=== PATIENT | female | born 1960 | race American Indian/Alaskan Native ===

== ENCOUNTER 2017-04-03 07:07 | Emergency (ER) | payer SELFPAY ==
[2017-04-03 08:17] LABS: Basophils % (Auto) 0.6 % (0.0-1.8); Eosinophils % (Auto) 0.6 % (0.0-4.3); Hematocrit 42.6 % (30.3-42.9); Hemoglobin 13.4 gm/dl (10.1-14.3); Mean Corpuscular HGB Conc 31 % (30-34); Mean Corpuscular Volume 79 fl (79-97); Platelet Count 225 K/mm3 (140-440); Red Blood Count 5.43 M/mm3 (3.65-5.03); Red Cell Distribution Width 16.4 % (13.2-15.2)
[2017-04-03 08:22] LABS: Albumin 4.1 g/dL (3.9-5); Bilirubin,Total 0.3 mg/dL (0.1-1.2); Calcium 10.5 mg/dL (8.4-10.2); Chloride 102.8 mmol/L (98-107); Potassium 3.7 mmol/L (3.6-5.0); Total Protein 8.1 g/dL (6.3-8.2)
[2017-04-03 08:26] LABS: Mean Corpuscular Hemoglobin 25 pg (28-32)
[2017-04-03 09:32] LABS: Bacteria,Urine 1+ /HPF (Negative); Bilirubin,Urine SM (Negative); Blood,Urine NEG (Negative); Ketones,Urine TR mg/dL (Negative); Leukocyte Esterase,Urine NEG (Negative); Nitrite,Urine NEG (Negative)
--- NOTE | 2017-04-03 14:16 | Emergency Department Report ---
ED General Adult HPI - General Chief complaint: Abdominal Pain Stated complaint: NAUSEA/VOMITING Time Seen by Provider: 04/03/17 13:44 Source: patient Mode of arrival: Stretcher Limitations: No Limitations - History of Present Illness Initial comments: Patient states that she had lower abdominal pain at about 11:00 this morning. She had a bowel movement which was diarrhea. She noted some blood in the commode and that caused her to call EMS. At the time of my encounter now about 2:15 in the afternoon the patient is asymptomatic. She states he's had no further abdominal pain, diarrhea or any hematochezia. She states that she had a colonoscopy 2-3 years ago and was told that nothing abnormal was found. She is just moved to this area and does not have a physician. She denies any fever or chills. She denies nausea and vomiting. He states he has no history of diabetes. -: Gradual Location: abdomen Radiation: non-radiation Quality: aching Consistency: now resolved Improves with: none Worsens with: none Associated Symptoms: other (hematochezia) Treatments Prior to Arrival: none - Related Data Allergies Allergy/AdvReac Type Severity Reaction Status Date / Time verapamil Allergy Swelling Verified 04/03/17 07:23 ED Review of Systems ROS: Stated complaint: NAUSEA/VOMITING Other details as noted in HPI Constitutional: denies: chills, fever Eyes: denies: eye pain, eye discharge, vision change ENT: denies: ear pain, throat pain Respiratory: denies: cough, shortness of breath, wheezing Cardiovascular: denies: chest pain, palpitations Endocrine: no symptoms reported Gastrointestinal: abdominal pain. denies: nausea, diarrhea Genitourinary: denies: urgency, dysuria, discharge Musculoskeletal: denies: back pain, joint swelling, arthralgia Skin: denies: rash, lesions Neurological: denies: headache, weakness, paresthesias Psychiatric: denies: anxiety, depression Hematological/Lymphatic: denies: easy bleeding, easy bruising ED Past Medical Hx - Past Medical History Previous Medical History?: Yes Hx Hypertension: Yes Additional medical history: hyperlipidemia, hypothyroidism - Surgical History Past Surgical History?: Yes Additional Surgical History: partial hysterectomy - Social History Smoking Status: Never Smoker Substance Use Type: None ED Physical Exam - General Limitations: No Limitations General appearance: alert, in no apparent distress - Head Head exam: Present: atraumatic, normocephalic - Eye Eye exam: Present: normal appearance. Absent: scleral icterus - ENT ENT exam: Present: normal exam, mucous membranes moist - Neck Neck exam: Present: normal inspection. Absent: tenderness, meningismus - Respiratory Respiratory exam: Present: normal lung sounds bilaterally. Absent: respiratory distress - Cardiovascular Cardiovascular Exam: Present: regular rate, normal rhythm. Absent: systolic murmur, diastolic murmur, rubs, gallop - GI/Abdominal GI/Abdominal exam: Present: soft, normal bowel sounds. Absent: distended, tenderness, guarding, rebound, rigid, organomegaly, mass, bruit, pulsatile mass , hernia - Extremities Exam Extremities exam: Present: normal inspection - Back Exam Back exam: Present: normal inspection - Neurological Exam Neurological exam: Present: alert, oriented X3, CN II-XII intact. Absent: motor sensory deficit - Psychiatric Psychiatric exam: Present: normal affect, normal mood - Skin Skin exam: Present: warm, dry, intact, normal color. Absent: rash ED Course Vital Signs 04/03/17 07:23 Temperature 97.4 F L Pulse Rate 50 L Respiratory 18 Rate Blood Pressure 111/70 O2 Sat by Pulse 99 Oximetry - Reevaluation(s) Reevaluation #1: She states she is currently taking Synthroid and an GREG inhibitor as well as a statin. Compliant with her medicines. She states that she is always bradycardic and is aware of that. She is appropriate for outpatient referral. 04/03/17 14:46 ED Medical Decision Making - Lab Data Result diagrams: 04/03/17 07:52 04/03/17 07:52 Laboratory Results - last 24 hr 04/03/17 04/03/17 04/03/17 07:52 07:52 09:09 WBC 10.0 RBC 5.43 H Hgb 13.4 Hct 42.6 MCV 79 MCH 25 L MCHC 31 RDW 16.4 H Plt Count 225 Lymph % (Auto) 15.3 Mathews % (Auto) 4.0 Eos % (Auto) 0.6 Baso % (Auto) 0.6 Lymph # 1.5 Mathews # 0.4 Eos # 0.1 Baso # 0.1 Seg Neutrophils % 79.5 H Seg Neutrophils # 7.9 H Sodium 145 Potassium 3.7 Chloride 102.8 Carbon Dioxide 26 Anion Gap 20 BUN 18 H Creatinine 1.2 Estimated GFR 46 BUN/Creatinine Ratio 15.00 Glucose 169 H Calcium 10.5 H Total Bilirubin 0.30 AST 17 ALT 13 Alkaline Phosphatase 104 Total Protein 8.1 Albumin 4.1 Albumin/Globulin Ratio 1.0 Lipase 51 Urine Color Ama Urine Turbidity Clear Urine pH 5.0 Ur Specific [place] 1.023 Urine Protein 100 mg/dl Urine Glucose (UA) Neg Urine Ketones Tr Urine Blood Neg Urine Nitrite Neg Urine Bilirubin Sm Urine Ictotest Negative Urine Urobilinogen 4.0 Ur Leukocyte Esterase Neg Urine WBC (Auto) 5.0 Urine RBC (Auto) 3.0 U Epithel Cells (Auto) 1.0 Urine Bacteria (Auto) 1+ Hyaline Casts 13 Critical care attestation.: If time is entered above; I have spent that time in minutes in the direct care of this critically ill patient, excluding procedure time. ED Disposition Clinical Impression: Lower GI bleeding, Bradycardia, Hyperglycemia Diarrhea Qualifiers: Diarrhea type: unspecified type Qualified Code(s): R19.7 - Diarrhea, unspecified Abdominal pain Qualifiers: Abdominal location: lower abdomen, unspecified Qualified Code(s): R10.30 - Lower abdominal pain, unspecified Disposition: TO HOME OR SELFCARE Is pt being admited?: No Does the pt Need Aspirin: No Condition: Stable Instructions: Abdominal Pain (ED), Acute Diarrhea (ED), Gastrointestinal Bleeding (ED), Rectal Bleeding (ED) Additional Instructions: Follow-up with primary care and GI. She referrals. Avoid aspirin. You're also found to have a mildly elevated sugar. Early diabetes is not unlikely. This requires follow-up as well. Referrals: RORY RICHTER MD [Primary Care Provider] - 3-5 Days [facility] [Provider Group] - 3-5 Days MADELYN DUMONT MD [Staff Physician] - 2-3 Days Time of Disposition: 14:48
[2017-04-03 15:23] VITALS: BP 120/71
== END 2017-04-03 15:22 | disposition home or self-care (01) ==
LOC: ED 07:07
DX: K92.2 Gastrointestinal hemorrhage, unspecified (principal); R00.1 Bradycardia, unspecified; R73.9 Hyperglycemia, unspecified; R19.7 Diarrhea, unspecified; I10 Essential (primary) hypertension; E78.00 Pure hypercholesterolemia, unspecified; E03.9 Hypothyroidism, unspecified; Z88.8 Allergy status to other drugs, medicaments and biological substances
CPT/HCPCS: 36415; 80053; 81001; 83690; 85025; 99283